=== PATIENT | female | born 1935 | race Caucasian/White ===

== ENCOUNTER 2017-11-19 19:54 | Inpatient (IN) ==
--- NOTE | 2017-11-19 20:37 | ED ---
HPI General Chief Complaint: Fall Stated Complaint: Fall Time Seen by Provider: 11/19/17 20:24 Source: patient and RN notes reviewed Mode of arrival: EMS Limitations: no limitations History of Present Illness HPI Narrative: 82-year-old female presents to the emergency department for evaluation of left hip pain after she tripped and fell approximately 40 minutes ago. Patient states she tripped and fell over the dog, landing on her left hip. Patient denies any head injury or LOC. She denies any neck pain. No chest pain or abdominal pain. No vomiting. She states the pain is minimal are gone as long as she stays still. Pain is worsened with movement. She states she is unable to lift her left leg. Patient reports history of depression. She also states she is on sulfa for a skin condition. She denies any other medical problems. Moderate severity. MD complaint: fall Onset (ago): minute(s) (40) Fall from: standing Place fall occurred: home Loss of consciousness: none Prolonged down time: no Symptoms prior to fall: none Context: tripped/slipped Location of injury: pelvis Severity: moderate Quality: aching Associated symptoms (after fall): unable to walk Related Data Allergies Allergy/AdvReac Type Severity Reaction Status Date / Time penicillin G Allergy Severe HIVES Unverified 11/13/16 14:23 Review of Systems ROS: all other systems reviewed are negative [facility] Medical History Medical History Arm fracture, left (Acute) Thyroid disease (Acute) Surgical History Surgical History History of mastectomy (Acute) Social History Social History Second Hand Smoke Exposure: No Smoking Status: Never smoker How Often Do You Have a Drink Containing Alcohol: Monthly or less Immunization History Tetanus Immunization: <5 Years Tetanus Immunization Year if Known: 2016 Hx Influenza Vaccine This Season: Yes Exam Narrative Exam Narrative: GENERAL: Well-nourished, well-developed elderly female patient, afebrile SKIN: Focused skin assessment warm/dry. No lacerations or abrasions HEAD: Normocephalic. Atraumatic EYES: No scleral icterus. No injection or drainage. NECK: Supple, trachea midline. No JVD or lymphadenopathy. CARDIOVASCULAR: Regular rate and rhythm without murmurs, gallops, or rubs. Bilateral radial and pedal pulses 2+ RESPIRATORY: Breath sounds equal bilaterally. No accessory muscle use. Lung sounds are clear to auscultation GASTROINTESTINAL: Abdomen soft, non-tender, nondistended. MUSCULOSKELETAL: No cyanosis, or edema. Patient has reproducible tenderness over the left lateral hip. BACK: No obvious deformity. No CVA tenderness. Patient reports tenderness over midline lumbar spine. No bony stepoff or crepitus. No midline cervical spine tenderness. She has full lateral rotation without pain or stiffness. Course Initial Documented Vital Signs Temperature 98.9 F 11/19/17 20:09 Pulse Rate 80 11/19/17 20:09 Respiratory Rate 15 11/19/17 20:09 Blood Pressure 158/95 H 11/19/17 20:09 Pulse Oximetry 98 11/19/17 20:09 Last Documented Vital Signs Temperature 98.9 F 11/19/17 20:09 Pulse Rate 80 11/19/17 20:09 Respiratory Rate 15 11/19/17 20:09 Blood Pressure 158/95 H 11/19/17 20:09 Pulse Oximetry 98 11/19/17 20:09 Medical Decision Making MDM Narrative Medical decision making narrative: 82 year old female presents to the emergency department after she tripped and fell at home, complaining of left hip pain. She declines pain medication at this time. X-ray of the lumbar spine, pelvis and left femur are ordered and pending. X-ray of the lumbar spine shows no acute fracture. X-ray of the pelvis shows intertrochanteric fracture left proximal femur. X-ray of the left femur shows nondisplaced intertrochanteric fracture. IV access established. CBC, CMP, PTT, PT/INR, EKG, chest x-ray ordered and pending. Dr. Carter accepted admission. Call was placed to Dr. Morrell. Dr. Morrell would like patient to be n.p.o. after midnight and consult placed. Medical Screen Exam Complete: Yes Emergency Medical Condition: Yes Differential Diagnosis Differential Diagnosis: fracture vs. dislocation vs. contusion Imaging Data Radiologist's impression: Femur X-Ray 11/19/17 20:31 CONCLUSION: Nondisplaced intratrochanteric fracture. Lumbar Spine X-Ray 11/19/17 20:31 CONCLUSION: 1. No evidence of compression deformity. 2. Grade 1 anterolisthesis at L4-5. 3. 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 Pelvis X-Ray 11/19/17 20:31 CONCLUSION: Intertrochanteric fracture left proximal femur. Discharge Plan Discharge Disposition Patient Disposition: 30 Still Patient Discharge Details Diagnosis: Fracture of hip, left, closed Physicians Team ED Provider: Blanca Haynes ED Midlevel Provider: Lee Ann Mcdnoald Primary Care Provider: Gabriela Crawley ED Status: With Doctor
--- NOTE | 2017-11-19 22:07 | XR ---
EXAM DATE: 11/19/2017 9:29 PM EDT AGE/SEX: 82 years / Female INDICATIONS: Lower back pain status post fall. CLINICAL DATA: This is the patient's initial encounter. Patient reports that signs and symptoms have been present for 1 day and indicates a pain score of 3/10. MEDICAL/SURGICAL HISTORY: None. None. COMPARISON: No prior exams available for comparison. FINDINGS: There are 4 nonrib-bearing vertebral bodies. L5 is sacralized on the left side. There is grade 1 ante rolisthesis at L4-5. Prominent hypertrophic changes are seen in the posterior elements at L4-5. Pedic les are seen at all levels. The arcuate lines of the sacrum or symmetric. No compression deformities seen. CONCLUSION: 1. No evidence of compression deformity. 2. Grade 1 anterolisthesis at L4-5. 3. 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 Electronically signed by: Jose G Marin MD 11/19/2017 10:06 PM EDT
--- NOTE | 2017-11-19 22:08 | XR ---
EXAM DATE: 11/19/2017 9:29 PM EDT AGE/SEX: 82 years / Female INDICATIONS: Pelvic pain status post fall. CLINICAL DATA: This is the patient's initial encounter. Patient reports that signs and symptoms have been present for 1 day and indicates a pain score of 5/10. MEDICAL/SURGICAL HISTORY: None. None. COMPARISON: No prior exams available for comparison. FINDINGS: Frontal view of the pelvis demonstrates an intertrochanteric hairline fracture in the left femur. The bony pelvic ring is intact. Diffuse osteopenia. CONCLUSION: Intertrochanteric fracture left proximal femur. Electronically signed by: Jose G Marin MD 11/19/2017 10:07 PM EDT
--- NOTE | 2017-11-19 22:09 | XR ---
EXAM DATE: 11/19/2017 9:29 PM EDT AGE/SEX: 82 years / Female INDICATIONS: Patient complains of left femur pain status post fall. CLINICAL DATA: This is the patient's initial encounter. Patient reports that signs and symptoms have been present for 1 day and indicates a pain score of 8/10. MEDICAL/SURGICAL HISTORY: None. None. COMPARISON: [facility] [place], [place], PELVIS AP 1V, 11/19/2017. . FINDINGS: There is a nondisplaced intratrochanteric fracture. The femoral neck is intact. The shaft of the femu r is intact. CONCLUSION: Nondisplaced intratrochanteric fracture. Electronically signed by: Jose G Marin MD 11/19/2017 10:07 PM EDT
[2017-11-19] MEDS ORDERED: Morphine Sulfate Inj 2 MG/ML Vial IV.PUSH ONE (22:23)
--- NOTE | 2017-11-19 22:44 | XR ---
EXAM DATE: 11/19/2017 10:38 PM EDT AGE/SEX: 82 years / Female INDICATIONS: Evaluate for pneumonia, pneumothorax, or communicable disease. Pre op for fractured hi p. CLINICAL DATA: This is the patient's initial encounter. Patient reports that signs and symptoms have been present for 1 day and indicates a pain score of 0/10. MEDICAL/SURGICAL HISTORY: Carcinoma, breast. Mastectomy, right. COMPARISON: No prior exams available for comparison. FINDINGS: A single AP view of the chest demonstrates the lungs to be symmetrically aerated. There is an ill-def ined opacity in the left lower lung measuring 9 mm. The right lung is clear. No evidence of pleural e ffusion. The cardiomediastinal contours are unremarkable. Osseous structures are intact. Hemoclips in the right axilla CONCLUSION: 9 mm irregular margin opacity in the lower left lung could represent a small infiltrate or pulmonary nodule. The lungs are otherwise clear. Electronically signed by: Jose G Marin MD 11/19/2017 10:43 PM EDT
[2017-11-19 23:11] LABS: Baso # (Auto) 0.1 th/mm3 (0.0-0.2); Baso % (Auto) 0.6 % (0.0-2.0); Eos # (Auto) 0.1 th/mm3 (0.0-0.4); Eos % (Auto) 1.4 % (0.0-4.0); Hemoglobin 13.2 gm/dL (11.6-15.3); Lymph # (Auto) 1.5 th/mm3 (1.0-4.8); Lymph % (Auto) 15.5 % (9.0-44.0); Mean Corpuscular HGB Conc 34.6 % (32.0-36.0); Mean Corpuscular Volume 86.5 fL (80.0-100.0); Mean Platelet Volume 6.6 fL (7.0-11.0); Mono % (Auto) 10.1 % (0.0-8.0); Neut # (Auto) 6.9 th/mm3 (1.8-7.7); Neut % (Auto) 72.4 % (16.0-70.0); Platelet Count 310 th/mm3 (150-450); White Blood Count 9.5 th/mm3 (4.0-11.0)
[2017-11-19] MEDS ORDERED: Acetaminophen 325 MG Tablet PO PRN (23:17)
[2017-11-19] MEDS ORDERED: Bisacodyl 10 MG Supp RECTAL PRN (23:17)
[2017-11-19 23:20] LABS: Activated Partial Thrombo Time 27.6 sec (24.3-30.1); INR 1.1 Ratio; Prothrombin Time 10.7 sec (9.8-11.6)
[2017-11-19 23:22] LABS: Alanine Aminotransferase 18 U/L (10-53); Albumin 3.7 g/dL (3.4-5.0); Anion Gap 9 meq/L (5-15); Aspartate Aminotransferase 17 U/L (15-37); Blood Urea Nitrogen 8 mg/dL (7-18); Calcium 8.5 mg/dL (8.5-10.1); Carbon Dioxide 23.8 meq/L (21.0-32.0); Chloride 93 meq/L (98-107); Glomerular Filtration Rate 64 mL/min (>89); Glucose,Random 124 mg/dL (74-106); Potassium 3.9 meq/L (3.5-5.1); Sodium 126 meq/L (136-145)
[2017-11-19 23:23] LABS: Alkaline Phosphatase 63 U/L (45-117)
[2017-11-20] MEDS: Morphine Inj 4 MG/ML Vial IV.PUSH PRN ×3 (00:24→06:31)
--- NOTE | 2017-11-20 00:50 | P.HP ---
History of Present Illness Service: [facility] Primary Care Physician: Gabriela Crawley DO History of Present Illness: 82-year-old female with a past medical history significant for hypothyroidism, Lyme disease, depression and a history of breast cancer presents to the emergency department after suffering a fall. The patient reports she was walking in a door when she tripped over a dog. She reports that she fell completely on her hip. She denies any head trauma or loss of consciousness. She reports pain in her left hip but denies any other injuries. No chest pain or shortness of breath. No abdominal pain. No nausea/vomiting/diarrhea. No fever/chills. Inpatient Certification: I certify that the inpatient services were ordered in accordance with Medicare regulations governing the order. This includes certification that hospital inpatient services are reasonable and necessary and in the case of services not specified as inpatient-only under 42 CFR 419.22(n), that they are appropriately provided as inpatient services in accordance to with the 2-midnight benchmark under 43 CFR 412.3(e) Estimated Total Length of Stay (Days): 3 Plans for Post Hospital Care: Not yet determined Review of Systems All other systems reviewed negative except as stated [facility] - History History Provided By: Patient - Medical History Medical History: Medical History (Last Updated 11/20/17 @ 00:45 by Naima Carter MD) Arm fracture, left Depression History of breast cancer Lyme disease Thyroid disease - Surgical History Surgical History: Surgical History (Last Updated 11/20/17 @ 00:45 by Naima Carter MD) History of mastectomy History of surgery on arm - Family History Family History: Family History (Last Updated 11/20/17 @ 00:45 by Naima Carter MD) Other Coronary artery disease - Tobacco History Second Hand Smoke Exposure: No Smoking Status: Never smoker - Alcohol History How Often Do You Have a Drink Containing Alcohol: Monthly or less - Immunization History Tetanus Immunization: <5 Years Tetanus Immunization Year if Known: 2017 Hx Influenza Vaccine This Season: Yes Medications and Allergies Active Medications: Active Medications Acetaminophen (Tylenol) 650 mg PO Q4H PRN PRN Reason: Temp > 100.4 Al Hydroxide/Mg Hydroxide (Milk Of Magnesia Liq) 30 ml PO Q12H PRN PRN Reason: Mild Constipation Artificial Tears (Tears Naturale Opth Drops) 1 drop EACH EYE DAILY SB Bisacodyl (Dulcolax Supp) 10 mg RECTAL DAILY PRN PRN Reason: SEVERE CONSITIPATION Duloxetine HCl (Cymbalta) 60 mg PO DAILY [facility] Levothyroxine Sodium (Synthroid) 50 mcg PO DAILY@0700 SB Liothyronine Sodium (Cytomel) 5 mcg PO DAILY SB Morphine Sulfate (Morphine Inj) 2 mg IV.PUSH Q3H PRN PRN Reason: pain > 4 Last Admin: 11/20/17 00:24 Dose: 2 mg Ondansetron HCl (Zofran Inj) 4 mg IV.PUSH Q6H PRN PRN Reason: NAUSEA OR VOMITING Sennosides (Senokot) 17.2 mg PO Q12H PRN PRN Reason: Moderate Constipation Allergies Allergy/AdvReac Type Severity Reaction Status Date / Time azithromycin Allergy Swelling Verified 11/19/17 22:50 of Lip/Tongue/Throat celecoxib [From Celebrex] Allergy Abdominal Verified 11/19/17 22:50 Pain codeine Allergy Nausea Verified 11/19/17 22:50 diclofenac [From Arthrotec] Allergy Nausea/Vomi Verified 11/19/17 22:50 ting doxycycline Allergy Nausea/Vomi Verified 11/19/17 22:50 ting escitalopram [From Lexapro] Allergy Shakiness Verified 11/19/17 22:50 levofloxacin Allergy Arthritis Verified 11/19/17 22:50 methylprednisolone Allergy Anxiety Verified 11/19/17 22:50 [From Medrol] misoprostol [From Arthrotec] Allergy Nausea/Vomi Verified 11/19/17 22:50 ting penicillin V Allergy Difficulty Verified 11/19/17 22:50 Breathing Home Medications Medication Instructions Recorded Confirmed Type dextran 70-hypromellose (PF) 1 drp OPHTHALMIC (EYE) DAILY 11/19/17 11/19/17 History [Artificial Tears (PF)] duloxetine 60 mg PO DAILY 11/19/17 11/19/17 History fluconazole 200 mg PO DAILY 11/19/17 11/19/17 History levothyroxine 50 mcg PO DAILY 11/19/17 11/19/17 History liothyronine 5 mcg PO DAILY 11/19/17 11/19/17 History terbinafine HCl 250 mg PO DAILY 11/19/17 11/19/17 History Exam Vital signs: Vital Signs 11/19/17 20:09 Temperature 98.9 F Pulse Rate 80 Respiratory Rate 15 Blood Pressure 158/95 H Pulse Oximetry 98 Intake & Output 11/19/17 11/19/17 11/20/17 06:59 18:59 06:59 Weight 60 kg Narrative: Gen.: No acute distress Head: Normocephalic. Atraumatic. EENT: Pupils equal round and reactive to light. Nose without drainage. Airway intact. Throat without injection. Cardiovascular: Regular rate and rhythm. No murmurs, rubs or gallops. Respiratory: Lungs clear to auscultation bilaterally. No wheezes or rhonchi. Abdomen: Soft, nontender, nondistended. No peritoneal signs. Musculoskeletal: Left lower extremity neurovascularly intact. Skin: No obvious rashes or erythema. Neuro: Sensory and motor grossly intact. Cranial nerves II through XII grossly intact. Results - Labs CBC & Chem 7: 11/19/17 22:15 11/19/17 22:15 Labs: Laboratory Results - last 24 hr 11/19/17 11/19/17 11/19/17 22:15 22:15 22:15 WBC 9.5 RBC 4.40 Hgb 13.2 Hct 38.0 MCV 86.5 MCH 30.0 MCHC 34.6 RDW 13.0 Plt Count 310 MPV 6.6 L Neut % (Auto) 72.4 H Lymph % (Auto) 15.5 Alfalfa % (Auto) 10.1 H Eos % (Auto) 1.4 Baso % (Auto) 0.6 Neut # (Auto) 6.9 Lymph # (Auto) 1.5 Alfalfa # (Auto) 1.0 H Eos # (Auto) 0.1 Baso # (Auto) 0.1 WBC Differential . Differential Comment Auto diff final PT 10.7 INR 1.1 APTT 27.6 Sodium 126 L Potassium 3.9 Chloride 93 L Carbon Dioxide 23.8 Anion Gap 9 BUN 8 Creatinine 0.85 Estimated GFR 64 L Random Glucose 124 H Calcium 8.5 Total Bilirubin 0.4 AST 17 ALT 18 Alkaline Phosphatase 63 Total Protein 7.0 Albumin 3.7 - Imaging Impressions Femur X-Ray 11/19/17 20:31 CONCLUSION: Nondisplaced intratrochanteric fracture. Lumbar Spine X-Ray 11/19/17 20:31 CONCLUSION: 1. No evidence of compression deformity. 2. Grade 1 anterolisthesis at L4-5. 3. 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 Pelvis X-Ray 11/19/17 20:31 CONCLUSION: Intertrochanteric fracture left proximal femur. Chest X-Ray 11/19/17 22:12 CONCLUSION: 9 mm irregular margin opacity in the lower left lung could represent a small infiltrate or pulmonary nodule. The lungs are otherwise clear. Caprini VTE Risk Assessment Caprini VTE Risk Assessment: Moderate/High Risk (score >= 2) Caprini Risk Assessment Model: Point Value = 1 Point Value = 2 Point Value = 3 Point Value = 5 Age 41-60 Minor surgery BMI > 25 kg/m2 Swollen legs Varicose veins or History of unexplained or recurrent spontaneous Oral contraceptives or hormone replacement Sepsis (< 1 month) Serious lung disease, including pneumonia (< 1 month) Abnormal pulmonary function Acute myocardial infarction Congestive heart failure (< 1 month) History of inflammatory bowel disease Medical patient at bed rest Age 61-74 Arthroscopic surgery Major open surgery (> 45 min) Laparoscopic surgery (> 45 min) Malignancy Confined to bed (> 72 hours) Immobilizing plaster cast Central venous access Age >= 75 History of VTE Family history of VTE Factor V Leiden Prothrombin [id number] Lupus anticoagulant Anticardiolipin antibodies Elevated serum homocysteine Heparin-induced thrombocytopenia Other congenital or acquired thrombophilia Stroke (< 1 month) Elective arthroplasty Hip, pelvis, or leg fracture Acute spinal cord injury (< 1 month) Prophylaxis Regimen: Total Risk Factor Score Risk Level Prophylaxis Regimen 0-1 Low Early ambulation 2 Moderate Order ONE of the following: *Sequential Compression Device (SCD) *Heparin 5000 units SQ BID 3-4 Higher Order ONE of the following medications: *Heparin 5000 units SQ TID *Enoxaparin/Lovenox 40 mg SQ daily (WT < 150 kg, CrCl > 30 mL/min) *Enoxaparin/Lovenox 30 mg SQ daily (WT < 150 kg, CrCl > 10-29 mL/min) *Enoxaparin/Lovenox 30 mg SQ BID (WT < 150 kg, CrCl > 30 mL/min) AND/OR *Sequential Compression Device (SCD) 5 or more Highest Order ONE of the following medications: *Heparin 5000 units SQ TID (Preferred with Epidurals) *Enoxaparin/Lovenox 40 mg SQ daily (WT < 150 kg, CrCl > 30 mL/min) *Enoxaparin/Lovenox 30 mg SQ daily (WT < 150 kg, CrCl > 10-29 mL/min) *Enoxaparin/Lovenox 30 mg SQ BID (WT < 150 kg, CrCl > 30 mL/min) AND *Sequential Compression Device (SCD) Assessment and Plan - Plan Assessment/plan: 1. Left hip fracture Pelvis x-ray significant for intertrochanteric fracture of the left proximal femur Orthopedic surgery consulted, appreciate recommendations 2. Hypothyroidism/depression Continue home medications FEN N.p.o. Electrolytes: Monitor and replete as needed NS at 70 cc/hour Holding pharmacologic anticoagulation for operative intervention
[2017-11-20] MEDS: Sod Chloride 0.9% Inj 1,000 ML IV.CONT SCH ×3 (01:01→16:57)
[2017-11-20] MEDS: Levothyroxine 50 MCG Tablet PO SCH (06:22)
--- NOTE | 2017-11-20 07:43 | P.CONOP ---
[facility] Orthopedics Consult Note - [facility] Chief complaint: Left Hip Fracture Narrative: 82-year-old female with a past medical history significant for hypothyroidism, Lyme disease, depression and a history of breast cancer presents to the emergency department after suffering a fall. The patient reports she was walking in a door when she tripped over a dog. She reports that she fell completely on her hip. She denies having any numbness or tingling about the left hip. She describes all of her pain around the left groin. She is difficulty ambulating. She has pain with any motion. She describes the pain as being very significant. Prior to this injury she was able to ambulate well without any assistive devices. She lives with her daughter who is at the bedside. She denies any head trauma or loss of consciousness. She reports pain in her left hip but denies any other injuries. No chest pain or shortness of breath. No abdominal pain. No nausea/vomiting/diarrhea. No fever/chills. Family history: As documented in the medical records. Review of Systems A 12 point review of systems was reviewed and is negative unless as specified in the history of present illness. [facility] - History History Provided By: Patient - Medical History Medical History: Medical History (Last Updated 11/20/17 @ 00:45 by Naima Carter MD) Arm fracture, left Depression History of breast cancer Lyme disease Thyroid disease - Surgical History Surgical History: Surgical History (Last Updated 11/20/17 @ 00:45 by Naima Carter MD) History of mastectomy History of surgery on arm - Family History Family History: Family History (Last Updated 11/20/17 @ 00:45 by Naiam Carter MD) Other Coronary artery disease - Tobacco History Second Hand Smoke Exposure: No Smoking Status: Never smoker - Alcohol History How Often Do You Have a Drink Containing Alcohol: Never - Substance Use History Substance History: No History of Abuse - Travel History Recent Travel in the [place] Within the Last 8 Weeks: No Recent Travel Out of the Country Within the Last 8 Weeks: No - Immunization History Tetanus Immunization: <5 Years Tetanus Immunization Year if Known: 2016 Hx Influenza Vaccine This Season: Yes Medications and Allergies Active Medications: Active Medications Acetaminophen (Tylenol) 650 mg PO Q4H PRN PRN Reason: Temp > 100.4 Al Hydroxide/Mg Hydroxide (Milk Of Magnesia Liq) 30 ml PO Q12H PRN PRN Reason: Mild Constipation Artificial Tears (Tears Naturale Opth Drops) 1 drop EACH EYE DAILY [facility] Bisacodyl (Dulcolax Supp) 10 mg RECTAL DAILY PRN PRN Reason: SEVERE CONSITIPATION Duloxetine HCl (Cymbalta) 60 mg PO DAILY [facility] Sodium Chloride (Ns Inj) 1,000 mls @ 70 mls/hr IV.CONT .[id number] [facility] Last Admin: 11/20/17 01:01 Dose: 70 mls/hr Levothyroxine Sodium (Synthroid) 50 mcg PO DAILY@0700 [facility] Last Admin: 11/20/17 06:22 Dose: 50 mcg Liothyronine Sodium (Cytomel) 5 mcg PO DAILY [facility] Morphine Sulfate (Morphine Inj) 2 mg IV.PUSH Q3H PRN PRN Reason: pain > 4 Last Admin: 11/20/17 06:31 Dose: 2 mg Ondansetron HCl (Zofran Inj) 4 mg IV.PUSH Q6H PRN PRN Reason: NAUSEA OR VOMITING Sennosides (Senokot) 17.2 mg PO Q12H PRN PRN Reason: Moderate Constipation Allergies Allergy/AdvReac Type Severity Reaction Status Date / Time azithromycin Allergy Swelling Verified 11/19/17 22:50 of Lip/Tongue/Throat celecoxib [From Celebrex] Allergy Abdominal Verified 11/19/17 22:50 Pain codeine Allergy Nausea Verified 11/19/17 22:50 diclofenac [From Arthrotec] Allergy Nausea/Vomi Verified 11/19/17 22:50 ting doxycycline Allergy Nausea/Vomi Verified 11/19/17 22:50 ting escitalopram [From Lexapro] Allergy Shakiness Verified 11/19/17 22:50 levofloxacin Allergy Arthritis Verified 11/19/17 22:50 methylprednisolone Allergy Anxiety Verified 11/19/17 22:50 [From Medrol] misoprostol [From Arthrotec] Allergy Nausea/Vomi Verified 11/19/17 22:50 ting penicillin V Allergy Difficulty Verified 11/19/17 22:50 Breathing Home Medications Medication Instructions Recorded Confirmed Type dextran 70-hypromellose (PF) 1 drp OPHTHALMIC (EYE) DAILY 11/19/17 11/19/17 History [Artificial Tears (PF)] duloxetine 60 mg PO DAILY 11/19/17 11/19/17 History fluconazole 200 mg PO DAILY 11/19/17 11/19/17 History levothyroxine 50 mcg PO DAILY 11/19/17 11/19/17 History liothyronine 5 mcg PO DAILY 11/19/17 11/19/17 History terbinafine HCl 250 mg PO DAILY 11/19/17 11/19/17 History Exam Vital signs: Vital Signs 11/19/17 20:09 11/20/17 00:00 11/20/17 00:51 Temperature 98.9 F 97.7 F Pulse Rate 80 89 Respiratory Rate 15 18 16 Blood Pressure 158/95 H 121/62 Pulse Oximetry 98 93 L 11/20/17 03:39 Temperature 97.6 F Pulse Rate 73 Respiratory Rate 16 Blood Pressure 133/63 Pulse Oximetry 95 Intake & Output 11/19/17 11/20/17 11/20/17 18:59 06:59 18:59 Weight 59.874 kg Other: Weight On Admission 59.874 kg Narrative: GENERAL: The patient is awake, alert and oriented x3. The patient is no significant distress, unless the left leg is rotated. PSYCHIATRIC: Normal affect, insight, and judgment. HEENT: Head is atraumatic. Oropharynx is moist. Extraocular muscles are intact. NECK: Non-tender and supple. LUNGS: No audible wheezing. He has normal inspiratory effort with no signs of dyspnea HEART: Regular rate and rhythm. ABDOMEN: Soft, nontender, and nondistended. BACK: No CVA tenderness. EXTREMITIES/SKIN/NEURO/VASCULAR: The left hip has no significant swelling. There are no wounds noted. Any motion causes severe pain. The left knee has no effusion. She actively move the toes well on the left foot. She has good capillary refill about the left lower extremity. There is normal sensation about the foot. The left anterior tibia has a moderate-sized abrasion with no signs of infection. There is no tenderness about the calf. The left upper extremity has a small abrasion about the elbow but she has full range of motion of the elbow with no crepitus, no instability, normal alignment, and good strength. The right upper extremity has good range of motion. The right knee and ankle have no swelling or tenderness. Results - Labs Result Diagrams: 11/19/17 22:15 11/19/17 22:15 Labs: Laboratory Results - last 24 hr 11/19/17 11/19/17 11/19/17 22:15 22:15 22:15 WBC 9.5 RBC 4.40 Hgb 13.2 Hct 38.0 MCV 86.5 MCH 30.0 MCHC 34.6 RDW 13.0 Plt Count 310 MPV 6.6 L Neut % (Auto) 72.4 H Lymph % (Auto) 15.5 [place] % (Auto) 10.1 H Eos % (Auto) 1.4 Baso % (Auto) 0.6 Neut # (Auto) 6.9 Lymph # (Auto) 1.5 [place] # (Auto) 1.0 H Eos # (Auto) 0.1 Baso # (Auto) 0.1 WBC Differential . Differential Comment Auto diff final PT 10.7 INR 1.1 APTT 27.6 Sodium 126 L Potassium 3.9 Chloride 93 L Carbon Dioxide 23.8 Anion Gap 9 BUN 8 Creatinine 0.85 Estimated GFR 64 L Random Glucose 124 H Calcium 8.5 Total Bilirubin 0.4 AST 17 ALT 18 Alkaline Phosphatase 63 Total Protein 7.0 Albumin 3.7 - Diagnostic results Imaging: Impressions Femur X-Ray 11/19/17 20:31 CONCLUSION: Nondisplaced intratrochanteric fracture. I have reviewed the images for this radiology study. I agree with the interpretation given by the radiologist. Lumbar Spine X-Ray 11/19/17 20:31 CONCLUSION: 1. No evidence of compression deformity. 2. Grade 1 anterolisthesis at L4-5. 3. 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 Pelvis X-Ray 11/19/17 20:31 CONCLUSION: Intertrochanteric fracture left proximal femur. I have reviewed the images for this radiology study. I agree with the interpretation given by the radiologist. Chest X-Ray 11/19/17 22:12 CONCLUSION: 9 mm irregular margin opacity in the lower left lung could represent a small infiltrate or pulmonary nodule. The lungs are otherwise clear. Assessment and Plan - Assessment and Plan 82-year-old female with a past medical history significant for hypothyroidism, Lyme disease, depression and a history of breast cancer. Hyponatremia. Left hip nondisplaced intertrochanteric fracture. We discussed that this is a serious condition effecting this patient's extremity. Nonoperative and operative options were discussed and reviewed. Potential consequences of both of these options were reviewed. Unfortunately, nonoperative management does have significant chance for displacement of the fracture which can lead to very significant loss of function of the left hip and the ability to ambulate, development of bedsores, pneumonia, DVT, and . I do recommend surgical management for this injury as nonoperative management has significant chances of failure. Surgery would consist of a left hip open reduction and internal fixation. We discussed postoperative course with the patient and with her daughter. The patient would like to move forward with urgent surgical management for this condition. This is surgery should be considered non-elective, given that this patient presented emergently to the hospital, and the decision to proceed with surgery was derived from this presentation. Significantly delaying surgery ( other than for medical clearance) has the potential to adversly effect the outcome for this patient's extermity. Management of pain associated with surgery will likely require the use of parental controlled substances. The risks and benefits of surgical management have been discussed in detail. The risks of surgery include, but are not limited to, injury to nerves, blood vessels, bleeding, infection, non-healing; loss of range on motion, dysfunction or weakness of the associated joints; blood clots, pneumonia, stroke, heart attack, and .
[2017-11-20] MEDS ORDERED: Chlorhexidine Gluconate 2% 1 Pack (2 Cloths) TOPICAL SCH (08:00)
[2017-11-20] MEDS ORDERED: Sodium Chlor 0.9% Inj 500 ML IV.SIG SCH (08:00)
[2017-11-20] MEDS ORDERED: Metoprolol Tartrate 25 MG Tablet PO SCH (08:00)
[2017-11-20] MEDS: Liothyronine 5 MCG Tablet PO SCH (09:22)
[2017-11-20] MEDS: Duloxetine 60 MG DR Capsule PO SCH (09:22)
[2017-11-20 10:18] LABS: Baso % (Auto) 0.6 % (0.0-2.0); Eos % (Auto) 0.5 % (0.0-4.0); Hemoglobin 13.3 gm/dL (11.6-15.3); Lymph # (Auto) 1.2 th/mm3 (1.0-4.8); Lymph % (Auto) 17.6 % (9.0-44.0); Mean Corpuscular HGB Conc 34.1 % (32.0-36.0); Mean Corpuscular Hemoglobin 29.9 pg (27.0-34.0); Mean Corpuscular Volume 87.5 fL (80.0-100.0); Mean Platelet Volume 7.1 fL (7.0-11.0); Mono # (Auto) 0.9 th/mm3 (0.0-0.9); Neut # (Auto) 4.6 th/mm3 (1.8-7.7); Neut % (Auto) 68.3 % (16.0-70.0); Platelet Count 308 th/mm3 (150-450); Red Blood Count 4.46 mil/mm3 (4.00-5.30); Red Cell Distribution Width 12.9 % (11.6-17.2); White Blood Count 6.8 th/mm3 (4.0-11.0)
[2017-11-20 10:38] LABS: Calcium 8.5 mg/dL (8.5-10.1); Potassium 4.2 meq/L (3.5-5.1)
[2017-11-20] MEDS ORDERED: Tranexamic Acid Inj 1,000 MG/10 ML Ampul ONE (11:07)
[2017-11-20] MEDS ORDERED: Zolpidem Tartrate 5 MG Tablet PO PRN (12:23)
[2017-11-20] MEDS ORDERED: Aluminum/Magnesium/Simethacone Susp 30 ML UDC PO PRN (12:23)
[2017-11-20] MEDS ORDERED: Morphine Inj 4 MG/ML Vial IV.PUSH PRN (12:23)
[2017-11-20] MEDS ORDERED: Post-op Orders (for Pharmacy) OTHER STA (12:23)
[2017-11-20] MEDS ORDERED: Bisacodyl 10 MG Supp RECTAL PRN (12:23)
--- NOTE | 2017-11-20 12:27 | P.OP ---
- Preoperative Diagnosis (1) Intertrochanteric fracture of left femur - Postoperative Diagnosis (1) Intertrochanteric fracture of left femur Date of procedure: 11/20/17 Procedure: Left hip treatment of intertrochanteric fracture with intramedullary nail Anesthesia: LISA Surgeon: Ruiz Morrell MD Diamond Sizer And Grader: LARRY Atkinson The surgical procedure was assisted by my Advanced Registered Nurse Practitioner. My WEIGHT CHECKER presence was necessary throughout this case for the manipulation and positioning of the surgical extremity. My WEIGHT CHECKER was assisting me throughout the duration of this procedure. The skill set of an Advance Registered Nurse Practitioner was medically necessary to complete this procedure. During the surgical case, the assistant professor surgical technology was working at the back table and the Advance Registered Nurse Practitioner was directly assisting me. Operation and Findings: Estimated blood loss: 200 cc Implants: Synthes short trochanteric nail, size: 11 x 130 with 85 mm helical blade The patient received intravenous vancomycin and she also had a test dose of Ancef showing no reaction and then she was given the full dose of Ancef. After the appropriate anesthesia was administered, and the patient was transferred to the fracture table. The fracture was anatomically reduced under fluoroscopic imaging. The hip was prepped and draped in usual sterile fashion. We made incision just proximal to the tip of the greater trochanter. We dissected down through the deep fascia. We used a threaded guidewire at the tip of the greater trochanter which was placed down to the metaphyseal region on both the AP and lateral views. We reamed proximally. Using fluoroscopic analysis we templated the appropriate size for the short nail. This nail was then placed into position under fluoroscopic guidance. We made incision laterally based on the position of the associated jig. We then placed a threaded guidewire into the center, center of the femoral head. The appropriate length for the helical blade was measured. We drilled laterally and then step reamed the femoral neck and femoral head region. The helical blade was placed into position. We then tightened the proximal set screw, which was followed by releasing one turn off of the screw to allow for compression. Traction was released from the leg and then manual compression was performed. The nail was secured distally with a single screw off of the jig using fluoroscopic guidance. We took final fluoroscopic imaging which revealed that the fracture was in very good position. The hardware was in good position as well. The wounds were thoroughly irrigated and then closed with a 0 Vicryl followed by 2-0 Vicryl and ray. The postoperative plan is to start full weightbearing. Additionally, we will initiate postoperative antibiotics for 24 hours along with DVT prophylaxis consisting of early mobilization, SCDs, compression stockings, and Lovenox followed by aspirin.
[2017-11-20] MEDS ORDERED: fentaNYL Citrate Inj 100 MCG/2 ML Ampul ONE (12:48)
[2017-11-20] MEDS ORDERED: *Ondansetron Inj 4 MG/2 ML Vial PERIprocedural Use ONLY ONE (13:04)
--- NOTE | 2017-11-20 13:07 | XR ---
EXAM DATE: 11/20/2017 12:38 PM EDT AGE/SEX: 82 years / Female INDICATIONS: Post-op ORIF left hip fracture. CLINICAL DATA: This is the patient's subsequent encounter. Patient reports that signs and symptoms h ave been present for 2 days and indicates a pain score of Nonresponsive. MEDICAL/SURGICAL HISTORY: Non-responsive. Non-responsive. COMPARISON: No prior exams available for comparison. FINDINGS: Status post ORIF left hip in anatomic alignment. CONCLUSION: Anatomic alignment. Electronically signed by: Jamal Bauman MD 11/20/2017 1:06 PM EDT
[2017-11-20] MEDS ORDERED: Lidocaine PF 1% Inj 5 ML Syringe INFILTRATN ONE (15:33)
[2017-11-20] MEDS ORDERED: Phenylephrine/NS 1000 MCG/10ML Syringe IV.PUSH ONE (15:33)
[2017-11-20] MEDS: Artificial Tears Opth Drops 15 ML Bottle EACH EYE SCH (16:56)
--- NOTE | 2017-11-20 21:43 | ECG ---
Date Performed: 11/19/2017 Time Performed: 23:23:13 PTAGE: 82 years EKG: Sinus rhythm MODERATE T-WAVE ABNORMALITY, CONSIDER ANTEROLATERAL ISCHEMIA ABNORMAL ECG PREVIOUS TRACING : 05/14/2007 12.31 Compared to previous tracing, T wave inversions are now mo re prominent DOCTOR: Lucio Lang Interpretating Date/Time 11/20/2017 21:42:10
[2017-11-20] MEDS: Multivitamin/Minerals Therapeutic Tablet PO SCH (22:41)
[2017-11-20] MEDS: Senna/Docusate Sodium 8.6/50 MG Tablet PO SCH (22:42)
[2017-11-21 04:36] LABS: Hemoglobin 12.8 gm/dL (11.6-15.3)
[2017-11-21] MEDS: Levothyroxine 50 MCG Tablet PO SCH ×2 (05:06→09:21)
[2017-11-21] MEDS: Sod Chloride 0.9% Inj 1,000 ML IV.CONT SCH ×2 (06:24→21:52)
--- NOTE | 2017-11-21 07:33 | P.PNOP ---
Subjective Interval history: The patient is resting in bed comfortably in no acute distress. The patient reports minimal pain to the left hip. Physical Exam Vital signs: Vital Signs 11/20/17 08:00 11/20/17 12:45 11/20/17 13:00 Temperature 97.6 F 97.6 F Pulse Rate 79 82 72 Respiratory Rate 14 22 22 Blood Pressure 157/70 H 176/81 H 147/68 H Pulse Oximetry 95 98 96 11/20/17 13:15 11/20/17 13:30 11/20/17 13:45 Temperature Pulse Rate 73 68 66 Respiratory Rate 22 22 13 Blood Pressure 142/66 H 135/65 135/61 Pulse Oximetry 96 95 95 11/20/17 14:00 11/20/17 14:15 11/20/17 16:00 Temperature 97.7 F 97.7 F 98 F Pulse Rate 67 69 73 Respiratory Rate 13 13 17 Blood Pressure 131/61 126/55 L 128/58 L Pulse Oximetry 94 L 94 L 98 11/20/17 20:00 11/21/17 00:00 11/21/17 04:00 Temperature 97.5 F L 98.0 F 97.3 F L Pulse Rate 86 75 75 Respiratory Rate 17 17 17 Blood Pressure 129/66 121/72 151/69 H Pulse Oximetry 99 98 100 Intake & Output 11/20/17 11/21/17 11/21/17 18:59 06:59 18:59 Intake Total 2440 / 2440 1300 / 1300 Output Total 300 / 300 Balance 2140 / 2140 1300 / 1300 Weight 59.87 kg 59.5 kg Intake: IV 2200 / 2200 1300 / 1300 NS Inj 1,000 ML @ 70 mls/hr IV. 1999 / 1999 1000 / 1000 CONT .[id number] SB Rx#:[id number] LR 1000 mL Inj 1,000 ML @ 30 200 / 200 mls/hr IV.SIG .Q24H SB Rx#: [id number] Ancef Inj 1,000 MG In NS Inj 300 / 300 100 ML @ 200 mls/hr IV.SIG Q6H SB Rx#:[id number] Oral 240 / 240 Output: Urine 100 / 100 Estimated Blood Loss 200 / 200 Other: # Voids 2 Date of Last Bowel Movement 11/19/17 11/19/17 Narrative: The patient's dressing is clean, dry, and intact. EHL/TA/G are intact. 2+ pedal pulse. The patient's calf is soft and nontender. Sensation is intact to light touch distally. Results - Labs CBC & Chem 7: 11/21/17 04:00 11/20/17 07:57 Laboratory Results - last 24 hr 11/20/17 11/20/17 11/21/17 07:57 07:57 04:00 WBC 6.8 RBC 4.46 Hgb 13.3 12.8 Hct 39.0 37.0 MCV 87.5 MCH 29.9 MCHC 34.1 RDW 12.9 Plt Count 308 MPV 7.1 Neut % (Auto) 68.3 Lymph % (Auto) 17.6 [place] % (Auto) 13.0 H Eos % (Auto) 0.5 Baso % (Auto) 0.6 Neut # (Auto) 4.6 Lymph # (Auto) 1.2 [place] # (Auto) 0.9 Eos # (Auto) 0.0 Baso # (Auto) 0.0 WBC Differential . Differential Comment Auto diff final Sodium 128 L Potassium 4.2 Chloride 94 L Carbon Dioxide 26.0 Anion Gap 8 BUN 8 Creatinine 0.72 Estimated GFR 78 L Random Glucose 110 H Calcium 8.5 - Imaging Impressions Hip X-Ray 11/20/17 00:00 CONCLUSION: Anatomic alignment. - Procedures Left hip intramedullary nail for intertrochanteric hip fracture Assessment and Plan - Assessment and Plan POD #1: Left hip intramedullary nail 1. Weightbearing as tolerated on left lower extremity. 2. Lovenox followed by aspirin for DVT prophylaxis. 3. Ice as needed for swelling. 4. [facility]ipatory [facility] to [facility] on [facility] or Saturday. 5. The patient will follow up with Dr. Morrell and/or LARRY Pichardo as previously scheduled.
[2017-11-21] MEDS: Duloxetine 60 MG DR Capsule PO SCH (09:21)
[2017-11-21] MEDS: Liothyronine 5 MCG Tablet PO SCH (09:22)
[2017-11-21] MEDS: Senna/Docusate Sodium 8.6/50 MG Tablet PO SCH ×2 (09:22→21:50)
[2017-11-21] MEDS: Multivitamin/Minerals Therapeutic Tablet PO SCH ×2 (09:22→21:52)
[2017-11-21] MEDS: Artificial Tears Opth Drops 15 ML Bottle EACH EYE SCH (09:57)
[2017-11-21] MEDS ORDERED: Enoxaparin Inj 40 MG/0.4 ML Syringe SQ SCH (12:00)
--- NOTE | 2017-11-21 15:04 | P.PN ---
Subjective Interval history: Follow-up visit for left hip fracture. Patient is seen and examined sitting up in bed and in no acute distress. She reports that currently she is not having any pain and is also surprised that she did not experience any kind of pain while getting in bed. She denies any nausea, vomiting, diarrhea, cough, shortness of breath or chest pain. She reports that she will be going home to rehab, still deciding whether she [facility] or an alternative rehabilitation center. Physical Exam Vital signs: Vital Signs 11/20/17 16:00 11/20/17 20:00 11/21/17 00:00 Temperature 98 F 97.5 F L 98.0 F Pulse Rate 73 86 75 Respiratory Rate 17 17 17 Blood Pressure 128/58 L 129/66 121/72 Pulse Oximetry 98 99 98 11/21/17 04:00 11/21/17 08:00 11/21/17 12:00 Temperature 97.3 F L 97.2 F L 98.3 F Pulse Rate 75 89 78 Respiratory Rate 17 18 16 Blood Pressure 151/69 H 151/65 H 119/56 L Pulse Oximetry 100 99 96 Intake & Output 11/20/17 11/21/17 11/21/17 18:59 06:59 18:59 Intake Total 2440 / 2440 1300 / 1300 Output Total 300 / 300 Balance 2140 / 2140 1300 / 1300 Weight 59.87 kg 59.5 kg Intake: IV 2200 / 2200 1300 / 1300 NS Inj 1,000 ML @ 70 mls/hr IV. 1999 / 1999 1000 / 1000 CONT .[id number] SB Rx#:[id number] LR 1000 mL Inj 1,000 ML @ 30 200 / 200 mls/hr IV.SIG .Q24H SB Rx#: [id number] Ancef Inj 1,000 MG In NS Inj 300 / 300 100 ML @ 200 mls/hr IV.SIG Q6H SB Rx#:[id number] Oral 240 / 240 Output: Urine 100 / 100 Estimated Blood Loss 200 / 200 Other: # Voids 2 Date of Last Bowel Movement 11/19/17 11/19/17 11/19/17 Narrative: GENERAL: Well-developed, well-nourished elderly female in no acute distress. SKIN: Warm and dry. HEAD: Atraumatic. Normocephalic. EYES: Pupils equal and round. No scleral icterus. No injection or drainage. ENT: No nasal bleeding or discharge. Mucous membranes pink and moist. NECK: Trachea midline. No JVD. CARDIOVASCULAR: Regular rate and rhythm. RESPIRATORY: No accessory muscle use. Clear to auscultation. Breath sounds equal bilaterally. GASTROINTESTINAL: Abdomen soft, non-tender, nondistended. Hypoactive bowel sounds. MUSCULOSKELETAL: Extremities without clubbing, cyanosis, or edema. No obvious deformities. NEUROLOGICAL: Awake and alert. No obvious cranial nerve deficits. Motor grossly within normal limits. Normal speech. PSYCHIATRIC: Appropriate mood and affect; insight and judgment normal. Results - Labs CBC & Chem 7: 11/21/17 04:00 11/20/17 07:57 Laboratory Results - last 24 hr 11/21/17 04:00 Hgb 12.8 Hct 37.0 - Procedures Left hip intramedullary nail for intertrochanteric hip fracture Assessment and Plan - Plan 82-year-old female with past medical history of hypothyroidism and depression who sustained a mechanical fall at home resulting in left hip fracture. Left hip fracture Status post left hip intramedullary nailing 11/20 -DVT prophylaxis and pain control per orthopedic services -PT -H&H stable Hypothyroidism/depression -Continue home medications DVT prophylaxisLovenox Discussed Condition With: Patient Discharge Planning: Likely discharge to rehab either [place] or alternative rehab once cleared by orthopedic services.
[2017-11-22 04:50] LABS: Hematocrit 29.7 % (35.0-46.0); Hemoglobin 10.5 gm/dL (11.6-15.3)
[2017-11-22] MEDS: Levothyroxine 50 MCG Tablet PO SCH (06:02)
[2017-11-22 09:01] VITALS: BP 120/61; PULSE 93; RESP 18; TEMP 97.3; O2SAT 94
--- NOTE | 2017-11-22 10:46 | P.DS ---
Date of admission: 11/19/17 22:18 Primary care physician: Gabriela Crawley DO Brief History from admission: 82-year-old female with a past medical history significant for hypothyroidism, Lyme disease, depression and a history of breast cancer presents to the emergency department after suffering a fall. The patient reports she was walking in a door when she tripped over a dog. She reports that she fell completely on her hip. She denies any head trauma or loss of consciousness. She reports pain in her left hip but denies any other injuries. No chest pain or shortness of breath. No abdominal pain. No nausea/vomiting/diarrhea. No fever/chills. DS: Medications - Discharge Medications Prescriptions: aspirin 325 mg PO DAILY 30 Days #30 tab enoxaparin [Lovenox] 40 mg SUB-Q DAILY 10 Days #10 units hydrocodone-acetaminophen [Pelkie] 1 - 2 tab PO Q4-6H #50 tab DS: Summary Hospital Course: 82-year-old female with a past medical history significant for hypothyroidism, Lyme disease, depression and a history of breast cancer presented to the emergency department on 11/19 after suffering a fall at home when she tripped over a dog. She denies any head trauma or loss of consciousness. Patient underwent left hip treatment of intertrochanteric fracture with IM nailing on . She was seen and evaluated by PT following surgery and recommendations were made for PT. She was cleared by orthopedic services and is now ready to continue rehab at outpatient rehab center. At the time of my patient is sitting up in chair in her room, appears to be in no acute distress. She denies any nausea, vomiting, diarrhea, cough, shortness of breath or chest pain. She reports pain is well controlled, ambulating with the assistance of a walker and physical therapy. - Time Spent with Patient Total time spent providing and/or coordinating discharge services: Less than 30 minutes - Quality: VTE Deep Vein Thrombosis/Pulmonary Embolism Present on Admission: No Exam Vital signs: Vital Signs 11/21/17 12:00 11/21/17 13:38 11/21/17 16:00 Temperature 98.3 F 97.8 F Pulse Rate 78 71 Respiratory Rate 16 18 18 Blood Pressure 119/56 L 115/57 L Pulse Oximetry 96 95 11/21/17 20:00 11/22/17 00:00 11/22/17 02:29 Temperature 98 F 98 F Pulse Rate 79 82 Respiratory Rate 20 18 15 Blood Pressure 100/52 L 120/58 L Pulse Oximetry 94 L 96 11/22/17 08:00 Temperature 97.3 F L Pulse Rate 93 H Respiratory Rate 18 Blood Pressure 120/61 Pulse Oximetry 94 L Intake & Output 11/21/17 11/22/17 11/22/17 18:59 06:59 18:59 Intake Total 480 / 480 480 / 480 Balance 480 / 480 480 / 480 Intake: Oral 480 / 480 480 / 480 Other: # Voids 4 2 1 Date of Last Bowel Movement 11/19/17 11/19/17 11/19/17 Narrative: GENERAL: Well-developed, well-nourished elderly female in no acute distress. SKIN: Warm and dry. HEAD: Atraumatic. Normocephalic. EYES: Pupils equal and round. No scleral icterus. No injection or drainage. ENT: No nasal bleeding or discharge. Mucous membranes pink and moist. NECK: Trachea midline. No JVD. CARDIOVASCULAR: Regular rate and rhythm. RESPIRATORY: No accessory muscle use. Clear to auscultation. Breath sounds equal bilaterally. GASTROINTESTINAL: Abdomen soft, non-tender, nondistended. Hypoactive bowel sounds. MUSCULOSKELETAL: Extremities without clubbing, cyanosis, or edema. No obvious deformities. Left hip dressing dry and intact, no foot edema noted. NEUROLOGICAL: Awake and alert. No obvious cranial nerve deficits. Motor grossly within normal limits. Normal speech. PSYCHIATRIC: Appropriate mood and affect; insight and judgment normal. Results Procedures completed during hospitalization: Left hip intramedullary nail for intertrochanteric hip fracture 11/20 Labs on day of discharge: Labs from last 24 hours 11/22/17 03:38 Hgb 10.5 L D Hct 29.7 L - Impressions ITS Impressions Femur X-Ray 11/19/17 20:31 CONCLUSION: Nondisplaced intratrochanteric fracture. Lumbar Spine X-Ray 11/19/17 20:31 CONCLUSION: 1. No evidence of compression deformity. 2. Grade 1 anterolisthesis at L4-5. 3. 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 Pelvis X-Ray 11/19/17 20:31 CONCLUSION: Intertrochanteric fracture left proximal femur. Chest X-Ray 11/19/17 22:12 CONCLUSION: 9 mm irregular margin opacity in the lower left lung could represent a small infiltrate or pulmonary nodule. The lungs are otherwise clear. Hip X-Ray 11/20/17 00:00 CONCLUSION: Anatomic alignment. Discharge Plan - Discharge Disposition Patient Disposition: 03 Discharge to SNF - Discharge Condition Condition: Good - Discharge Order Discharge Orders: Discharge Order (Routine); Ordered 11/22/17 Ordered By: Dorita Norton - Physicians Team Primary Care Provider: Gabriela Crawley Attending Provider: Joshua Farr Other Providers: Ruiz Morrell MD ; [employer]
[2017-11-22] MEDS: Multivitamin/Minerals Therapeutic Tablet PO SCH (11:29)
[2017-11-22] MEDS: Liothyronine 5 MCG Tablet PO SCH (11:29)
[2017-11-22] MEDS: Senna/Docusate Sodium 8.6/50 MG Tablet PO SCH (11:30)
[2017-11-22] MEDS: Duloxetine 60 MG DR Capsule PO SCH (11:30)
--- NOTE | 2017-11-22 11:30 | P.PNOP ---
Subjective Interval history: The patient is out of bed in chair. The patient reports minimal pain to the left hip. The patient did have some difficulty sleeping due to some increased discomfort last night. The patient's discomfort has improved today. Physical Exam Vital signs: Vital Signs 11/21/17 12:00 11/21/17 13:38 11/21/17 16:00 Temperature 98.3 F 97.8 F Pulse Rate 78 71 Respiratory Rate 16 18 18 Blood Pressure 119/56 L 115/57 L Pulse Oximetry 96 95 11/21/17 20:00 11/22/17 00:00 11/22/17 02:29 Temperature 98 F 98 F Pulse Rate 79 82 Respiratory Rate 20 18 15 Blood Pressure 100/52 L 120/58 L Pulse Oximetry 94 L 96 11/22/17 08:00 Temperature 97.3 F L Pulse Rate 93 H Respiratory Rate 18 Blood Pressure 120/61 Pulse Oximetry 94 L Intake & Output 11/21/17 11/22/17 11/22/17 18:59 06:59 18:59 Intake Total 480 / 480 480 / 480 Balance 480 / 480 480 / 480 Intake: Oral 480 / 480 480 / 480 Other: # Voids 4 2 1 Date of Last Bowel Movement 11/19/17 11/19/17 11/19/17 Narrative: The patient's dressing is clean, dry, and intact. EHL/TA/G are intact. 2+ pedal pulse. The patient's calf is soft and nontender. Sensation is intact to light touch distally. Results - Labs CBC & Chem 7: 11/22/17 03:38 11/20/17 07:57 Laboratory Results - last 24 hr 11/22/17 03:38 Hgb 10.5 L D Hct 29.7 L - Procedures Left hip intramedullary nail for intertrochanteric hip fracture Assessment and Plan - Assessment and Plan POD #2: Left hip intramedullary nail 1. Weightbearing as tolerated on left lower extremity. 2. Lovenox followed by aspirin for DVT prophylaxis. 3. Ice as needed for swelling. 4. Anticipatory discharge to [facility] or [facility] today. 5. The patient will follow up with Dr. Morrell and/or LARRY Pichardo as previously scheduled.
== END 2017-11-22 15:34 ==
LOC: NEDAMB 19:54 → NEDA 22:18 → NEPGCP 11-20 00:40 → N06 11-20 10:28
PROVIDERS: ADMIT Internal Medicine; ATTEND Internal Medicine